=== PATIENT | female | born 1995 | race Caucasian/White ===

== ENCOUNTER 2018-07-24 09:44 | Emergency (ER) | payer OTHER ==
[2018-07-24 09:55] VITALS: Ht 160 cm
[2018-07-24 10:43] LABS: BASOPHIL % 0.6 % (0-2); PLATELET COUNT 254 x10^3mcL (130-400)
[2018-07-24 10:44] LABS: RED CELL DISTRIBUTION WIDTH 17.7 % (11.5-14.5)
[2018-07-24 11:08] LABS: CALCIUM 8.4 mg/dL (8.5-10.1); CARBON DIOXIDE 27.1 mmol/L (21-32); CHLORIDE SERUM 102 mmol/L (98-107); CREATININE SERUM 0.6 mg/dL (0.6-1.0); GFR1 > 60 mL/min; GLUCOSE SERUM 95 mg/dL (74-106); POTASSIUM SERUM 3.6 mmol/L (3.5-5.1); SODIUM SERUM 138 mmol/L (136-145)
[2018-07-24 11:12] LABS: ALBUMIN 3.6 g/dL (3.4-5.0); ALKALINE PHOSPHATASE 43 U/L (46-116); ALT/SGPT 0 U/L (14-59); AST/SGOT 14 U/L (15-37); HDL CHOLESTEROL 54 mg/dL (40-60); LIPASE 158 IU/L (73-393); TOTAL PROTEIN, SERUM 7.4 g/dL (6.4-8.2)
[2018-07-24 11:19] LABS: CHOLESTEROL 84 mg/dL (<200); CHOLESTEROL/HDL RATIO 1.6; TRIGLYCERIDES 19 mg/dL (<150)
[2018-07-24 12:01] VITALS: BP 110/67
== END 2018-07-24 12:01 | disposition home or self-care (01) ==
LOC: ED 09:44
PROVIDERS: Specialist
DX: R19.7 Diarrhea, unspecified (principal); R42 Dizziness and giddiness
CPT/HCPCS: J2405; J7030; Q0092

== ENCOUNTER 2019-09-02 13:28 | Emergency (ER) | payer OTHER | END 2019-09-02 15:30 | disposition left against medical advice (07) | LOC: ED 13:28 | DX: Z53.21 Procedure and treatment not carried out due to patient leaving prior to being seen by health care provider (principal) ==

== ENCOUNTER 2019-10-20 04:32 | Emergency (ER) | payer OTHER ==
[~2019-10-20] VITALS: Ht 160 cm; Wt 56.9 kg
[2019-10-20 04:39] VITALS: Ht 160 cm; Wt 56.9 kg
[2019-10-20 06:14] VITALS: BP 130/78
== END 2019-10-20 06:14 | disposition home or self-care (01) ==
LOC: ED 04:32
DX: J11.1 Influenza due to unidentified influenza virus with other respiratory manifestations (principal)
CPT/HCPCS: 87804; J1885

== ENCOUNTER 2019-12-25 22:46 | Emergency (ER) | payer OTHER ==
[~2019-12-25] VITALS: Ht 160 cm; Wt 56.7 kg
[2019-12-25 23:05] VITALS: Ht 160 cm; Wt 56.7 kg
[2019-12-26 01:53] VITALS: BP 141/97
== END 2019-12-26 01:53 | disposition home or self-care (01) ==
LOC: ED 22:46
DX: F45.8 Other somatoform disorders (principal)

== ENCOUNTER 2020-01-11 11:55 | Emergency (ER) | payer OTHER ==
[~2020-01-11] VITALS: Ht 160 cm; Wt 54.4 kg
[2020-01-11 12:02] VITALS: Ht 160 cm; Wt 54.4 kg
[2020-01-11 13:06] LABS: BASOPHIL % 0.6 % (0-2); PLATELET COUNT 304 x10^3mcL (130-400); RED CELL DISTRIBUTION WIDTH 12.8 % (11.5-14.5)
[2020-01-11 13:27] LABS: CALCIUM 8.7 mg/dL (8.5-10.1); CARBON DIOXIDE 28.8 mmol/L (21-32); CHLORIDE SERUM 105 mmol/L (98-107); CREATININE SERUM 0.6 mg/dL (0.6-1.0); GFR1 > 60 mL/min; GLUCOSE SERUM 89 mg/dL (74-106); POTASSIUM SERUM 3.5 mmol/L (3.5-5.1); SODIUM SERUM 142 mmol/L (136-145)
[2020-01-11 13:32] LABS: ALBUMIN 4.2 g/dL (3.4-5.0); ALKALINE PHOSPHATASE 43 U/L (46-116); ALT/SGPT 31 U/L (14-59); AST/SGOT 16 U/L (15-37); BILIRUBIN TOTAL 0.7 mg/dL (0.20-1.00); TOTAL PROTEIN, SERUM 8.1 g/dL (6.4-8.2)
[2020-01-11 15:18] VITALS: BP 111/62
== END 2020-01-11 15:18 | disposition home or self-care (01) ==
LOC: ED 11:55
PROVIDERS: Emergency Medicine
DX: J98.4 Other disorders of lung (principal); R42 Dizziness and giddiness
CPT/HCPCS: 36415; Q0092